=== PATIENT | female | born 1980 | race Caucasian/White ===

== ENCOUNTER 2017-02-23 17:21 | Emergency (ER) | payer MEDICAID ==
[2017-02-23 17:53] VITALS: BP 130/90
--- NOTE | 2017-02-23 18:12 | EDM.PDOC ---
ED HPI GENERAL MEDICAL PROBLEM - General Chief Complaint: Skin Complaint Stated Complaint: ABCESS Time Seen by Provider: 02/23/17 17:59 Source of Information: Reports: Patient History Limitations: Reports: No Limitations - History of Present Illness INITIAL COMMENTS - FREE TEXT/NARRATIVE: Patient is a 36 y/o female who presents to the E.D. complaining of pain to her rectum. States she has a history of crohns and perirectal abscess x 9. States the abscess are deep within and have required surgery to drain. She states the pain to the rectum is consistent with previous expisodes and has been worsening over the past few days. Has been seen by Dr. Maier with [facility] multiple times for surgical management. Patient states the pain is moderate intensity. Stools have been loose. No blood present. Denies fever/chills, n/v, abdominal pain, dysuria, or any additional complaints. Rectal Pain Score (Numeric/FACES): 5 - Related Data Allergies Allergy/AdvReac Type Severity Reaction Status Date / Time mesalamine [From Asacol] Allergy Headache Verified 04/15/16 10:58 Home Meds: Home Meds Certolizumab Pegol [Cimzia] 400 mg INJECT ASDIRECTED 02/23/17 [History] Doxycycline [Vibramycin] 100 mg PO Q12HR #20 cap 02/23/17 [Rx] L.acidoph,Paracasei, B.lactis [Probiotic] 2 cap PO DAILY 02/23/17 [History] buPROPion [Wellbutrin] 100 mg PO DAILY 02/23/17 [History] metroNIDAZOLE [Flagyl] 500 mg PO TID #30 tablet 02/23/17 [Rx] Past Medical History Gastrointestinal History: Reports: Inflammatory Bowel Disease, Other (See Below) Other Gastrointestinal History: crohns [facility] CODERS History: Reports: Musculoskeletal History: Reports: Osteoarthritis - Infectious Disease History Infectious Disease History: Reports: Chicken Pox - Past Surgical History GI Surgical History: Reports: Colonoscopy, Other (See Below) Other GI Surgeries/Procedures: osvaldo rectal abcess Social & Family History - Tobacco Use Smoking Status *Q: Never Smoker - Caffeine Use Caffeine Use: Reports: None - Recreational Drug Use Recreational Drug Use: No - Living Situation & Occupation Living situation: Reports: Occupation: Employed ED ROS GENERAL - Review of Systems Review Of Systems: See Below Constitutional: Denies: Fever, Chills, Decreased Appetite GI/Abdominal: Reports: Diarrhea. Denies: Abdominal Pain, Black Stool, Bloody Stool, Constipation, Nausea, Vomiting : Reports: No Symptoms Musculoskeletal: Reports: No Symptoms Skin: Reports: No Symptoms ED EXAM, SKIN/RASH Exam: See Below Exam Limited By: No Limitations General Appearance: Alert, WD/WN, No Apparent Distress Ears: Hearing Grossly Normal Nose: Normal Inspection Throat/Mouth: Normal Voice, No Airway Compromise Neck: Normal Inspection, Supple Respiratory/Chest: No Respiratory Distress, Lungs Clear, Normal Breath Sounds, No Accessory Muscle Use Cardiovascular: Normal Peripheral Pulses, Regular Rate, Rhythm, No Murmur Peripheral Pulses: 2+: Radial (L) GI/Abdominal: Normal Bowel Sounds, Soft, Non-Tender, No Organomegaly, No Distention (Female) Exam: Deferred Rectal (Female) Exam: Hemorrhoids, Other (Minimal tenderness to the along the outside of the rectum with palpation. No digital exam due to increasing pain. ) Neurological: Alert, Oriented Psychiatric: Normal Affect, Normal Mood Course - Vital Signs Last Recorded V/S: Last Vital Signs Temp 98.1 F 02/23/17 17:51 Pulse 81 02/23/17 17:51 Resp 20 02/23/17 17:51 BP 130/90 02/23/17 17:51 Pulse Ox 100 02/23/17 17:51 - Orders/Labs/Meds Labs: Laboratory Tests 02/23/17 02/23/17 02/23/17 Range/Units 18:30 18:30 18:30 WBC 9.29 (3.98-10.04) K/mm3 RBC 4.45 (3.98-5.22) M/mm3 Hgb 14.2 (11.2-15.7) gm/L Hct 42.3 (34.1-44.9) % MCV 95.1 H (79.4-94.8) fl MCH 31.9 (25.6-32.2) pg MCHC 33.6 (32.2-35.5) g/dl RDW Std Deviation 44.8 (36.4-46.3) fL Plt Count 238 (182-369) K/mm3 MPV 9.5 (9.4-12.3) fl Neut % (Auto) 57.7 (34.0-71.1) % Lymph % (Auto) 29.3 (19.3-51.7) % [place] % (Auto) 11.2 (4.7-12.5) % Eos % (Auto) 1.2 (0.7-5.8) Baso % (Auto) 0.3 (0.1-1.2) % Neut # (Auto) 5.36 (1.56-6.13) K/mm3 Lymph # (Auto) 2.72 (1.18-3.74) K/mm3 [place] # (Auto) 1.04 H (0.24-0.36) K/mm3 Eos # (Auto) 0.11 (0.04-0.36) K/mm3 Baso # (Auto) 0.03 (0.01-0.08) K/mm3 Sodium 139 (136-145) mEq/L Potassium 3.8 (3.5-5.1) mEq/L Chloride 102 (98-107) mEq/L Carbon Dioxide 29 (21-32) mEq/L Anion Gap 11.8 (5-15) BUN 14 (7-18) mg/dL Creatinine 1.0 (0.55-1.02) mg/dL Est Cr Clr Drug Dosing 82.48 mL/min Estimated GFR (MDRD) > 60 (>60) mL/min BUN/Creatinine Ratio 14.0 (14-18) Glucose 82 (74-106) mg/dL Calcium 9.2 (8.5-10.1) mg/dL Total Bilirubin 0.4 (0.2-1.0) mg/dL AST 17 (15-37) U/L ALT 21 (14-59) U/L Alkaline Phosphatase 41 L (46-116) U/L C-Reactive Protein 0.9 (<1.0) mg/dL Total Protein 7.5 (6.4-8.2) g/dl Albumin 3.6 (3.4-5.0) g/dl Globulin 3.9 gm/dL Albumin/Globulin Ratio 0.9 L (1-2) HCG, Qual Negative (NEGATIVE) Urine Color (Yellow) Urine Appearance (Clear) Urine pH (5.0-8.0) Ur Specific [place] (1.005-1.030) Urine Protein (Negative) Urine Glucose (UA) (Negative) Urine Ketones (Negative) Urine Occult Blood (Negative) Urine Nitrite (Negative) Urine Bilirubin (Negative) Urine Urobilinogen (0.2-1.0) Ur Leukocyte Esterase (Negative) Urine RBC (0-5) /hpf Urine WBC (0-5) /hpf Ur Epithelial Cells (0-5) /hpf Urine Bacteria (FEW) /hpf Urine Mucus (FEW) /hpf 02/23/17 Range/Units 19:20 WBC (3.98-10.04) K/mm3 RBC (3.98-5.22) M/mm3 Hgb (11.2-15.7) gm/L Hct (34.1-44.9) % MCV (79.4-94.8) fl MCH (25.6-32.2) pg MCHC (32.2-35.5) g/dl RDW Std Deviation (36.4-46.3) fL Plt Count (182-369) K/mm3 MPV (9.4-12.3) fl Neut % (Auto) (34.0-71.1) % Lymph % (Auto) (19.3-51.7) % [place] % (Auto) (4.7-12.5) % Eos % (Auto) (0.7-5.8) Baso % (Auto) (0.1-1.2) % Neut # (Auto) (1.56-6.13) K/mm3 Lymph # (Auto) (1.18-3.74) K/mm3 [place] # (Auto) (0.24-0.36) K/mm3 Eos # (Auto) (0.04-0.36) K/mm3 Baso # (Auto) (0.01-0.08) K/mm3 Sodium (136-145) mEq/L Potassium (3.5-5.1) mEq/L Chloride (98-107) mEq/L Carbon Dioxide (21-32) mEq/L Anion Gap (5-15) BUN (7-18) mg/dL Creatinine (0.55-1.02) mg/dL Est Cr Clr Drug Dosing mL/min Estimated GFR (MDRD) (>60) mL/min BUN/Creatinine Ratio (14-18) Glucose (74-106) mg/dL Calcium (8.5-10.1) mg/dL Total Bilirubin (0.2-1.0) mg/dL AST (15-37) U/L ALT (14-59) U/L Alkaline Phosphatase (46-116) U/L C-Reactive Protein (<1.0) mg/dL Total Protein (6.4-8.2) g/dl Albumin (3.4-5.0) g/dl Globulin gm/dL Albumin/Globulin Ratio (1-2) HCG, Qual (NEGATIVE) Urine Color Yellow (Yellow) Urine Appearance Clear (Clear) Urine pH 6.0 (5.0-8.0) Ur Specific [place] 1.015 (1.005-1.030) Urine Protein Negative (Negative) Urine Glucose (UA) Negative (Negative) Urine Ketones Negative (Negative) Urine Occult Blood Trace-lysed H (Negative) Urine Nitrite Negative (Negative) Urine Bilirubin Negative (Negative) Urine Urobilinogen 0.2 (0.2-1.0) Ur Leukocyte Esterase Negative (Negative) Urine RBC 0-5 (0-5) /hpf Urine WBC 0-5 (0-5) /hpf Ur Epithelial Cells 0-5 (0-5) /hpf Urine Bacteria Rare (FEW) /hpf Urine Mucus Not seen (FEW) /hpf Meds: Medications Discontinued Medications Generic Name Dose Route Start Last Admin Trade Name Freq PRN Reason Stop Dose Admin Diatrizoate Meglum/Diatrizoate Sod 90 ml 02/23/17 19:32 02/23/17 19:48 Gastrografin 37% PO 02/23/17 19:33 90 ml ONETIME ONE Administration Doxycycline Hyclate 200 mg 02/23/17 20:36 02/23/17 20:54 Vibramycin PO 02/23/17 20:37 200 mg ONETIME ONE Administration Hydromorphone HCl 0.5 mg 02/23/17 18:15 02/23/17 18:43 Dilaudid IVPUSH 02/23/17 18:16 0.5 mg ONETIME ONE Administration Iopamidol 125 ml 02/23/17 19:32 02/23/17 19:48 Isovue-300 (61%) IVPUSH 02/23/17 19:33 125 ml ONETIME ONE Administration Metronidazole 500 mg 02/23/17 20:36 02/23/17 20:54 Flagyl PO 02/23/17 20:37 500 mg ONETIME ONE Administration Ondansetron HCl 4 mg 02/23/17 18:14 02/23/17 18:41 Zofran IVPUSH 02/23/17 18:15 4 mg ONETIME ONE Administration Sodium Chloride 10 ml 02/23/17 18:14 02/23/17 18:40 Saline Flush FLUSH 10 ml ASDIRECTED PRN Administration Keep Vein Open Sodium Chloride 10 ml 02/23/17 19:32 02/23/17 19:48 Saline Flush FLUSH 02/23/17 19:33 10 ml ONETIME ONE Administration - Re-Assessments/Exams Free Text/Narrative Re-Assessment/Exam: Patient has a history of perirectal abscesses. She states pain similar to previous episodes. Will obtain basic labs including CBC, chem 14, CRP, hCG, and UA. CT the abdomen and pelvis with oral and IV contrast will be obtained. IV established with Dilaudid 0.5 mg IVP and Zofran 4 mg IVP. Labs reviewed: CBC and chem 14 are essentially normal. CRP is 0.9. HCG was negative. UA was negative for any concerning findings. 02/23/17 20:[address] Rocha requests patient be reevaluated by Dr. Maier with [facility]. Believes seeing Dr. Maier would offer the best outcome for the patient. Ordered doxycycline 200 mg by mouth and Flagyl 500 mg by mouth. We'll discharge patient home with instructions as documented. She will 02/23/17 20:51 Departure - Departure Time of Disposition: 20:52 Disposition: Home, Self-Care 01 Condition: Good Clinical Impression: Perirectal abscess Exacerbation of Crohn's disease Qualifiers: Digestive disease complication type: unspecified complication Qualified Code(s) : K50.919 - Crohn's disease, unspecified, with unspecified complications - Discharge Information Prescriptions: Doxycycline [Vibramycin] 100 mg PO Q12HR #20 cap metroNIDAZOLE [Flagyl] 500 mg PO TID #30 tablet Instructions: Crohn Disease Referrals: Nikolay Mckeon MD [Primary Care Provider] - Hung Maier MD [Ordering Only Provider] - Forms: ED Department Discharge Additional Instructions: Take the Flagyl and doxycycline as prescribed. For pain take tylenol 650mg every 6 hrs as needed. For severe pain take Jenkins one tab every 6 hours as needed. No driving this evening since receiving a sedative medication in the ED. No driving while taking the Jenkins. Do not take Tylenol and Jenkins together. Call and make an appointment tomorrow with Dr. Livier [facility] to be seen at his earliest appointment. Until evaluated by Dr. Maier perform sitz bath three times a day. Return to the E.D. for any new or worsening symptoms.
[2017-02-23] MEDS ORDERED: Sodium Chloride 0.9% 10 ML Syringe FLUSH PRN (18:14)
[2017-02-23] MEDS ORDERED: Ondansetron 4 MG/2 ML SDV IVPUSH ONE (18:14)
[2017-02-23] MEDS ORDERED: HYDROmorphone 0.5 MG/0.5 ML Syringe IVPUSH ONE (18:15)
[2017-02-23] MEDS ORDERED: Diatrizoate Meglumine/Diatrizoate Sodium 37% 120 ML Bottle PO ONE (19:32)
[2017-02-23] MEDS ORDERED: Iopamidol 612 MG/ML 150 ML Bottle IVPUSH ONE (19:32)
[2017-02-23] MEDS ORDERED: Sodium Chloride 0.9% 10 ML Syringe FLUSH ONE (19:32)
[2017-02-23] MEDS ORDERED: metroNIDAZOLE 500 MG Tab PO ONE (20:36)
[2017-02-23] MEDS ORDERED: Doxycycline 100 MG Cap PO ONE (20:36)
--- NOTE | 2017-02-24 08:36 | CT ---
CT abdomen and pelvis Technique: Multiple axial sections were obtained from the top of the liver inferiorly through the pubic symphysis. Intravenous and oral contrast was utilized. Delayed images were obtained through the bladder. Comparison: Previous CT abdomen and pelvis exam of 04/15/16. Findings: Perirectal abscess is identified. This occurs in similar location as to abscess seen on previous study and appears multiloculated. This occurs above the levator ani muscle. Largest abscess cavity is approximately 3.3 cm. Abscess appears mostly along the left lateral side of the rectum. There is rectal and sigmoid wall thickening with enhancement. No other areas of bowel wall thickening are seen. Visualized portions of the liver appear within normal limits. Spleen appears within normal limits. Adrenal glands show no nodule. Kidneys show symmetric contrast enhancement without hydronephrosis or mass. Pancreas is within normal limits. Aorta shows no aneurysmal dilatation. No retroperitoneal adenopathy or mesenteric abnormalities are seen. IUD is present within the uterus. Delayed images show contrast within the bladder. Bone window settings were reviewed which show incidental dural ectasia causing slight scalloping of the posterior S2 vertebral segment which is normal variant. Minimal degenerative change is noted within the spine. Impression: 1. Mild wall thickening and enhancement compatible with Crohn's disease involving a portion of sigmoid colon and rectum. Perirectal abscess is seen which is multiloculated and mostly on the left side and located above the levator ani muscle. 2. Other incidental findings. Diagnostic code #5 Agree with preliminary report issued by [facility] ([facility] preliminary report dictated on 02/23/17, 9:24 PM Central Time)
== END 2017-02-23 21:05 | disposition home or self-care (01) ==
LOC: JD.ED 17:21
DX: K61.1 Rectal abscess (principal); M19.90 Unspecified osteoarthritis, unspecified site; Z79.899 Other long term (current) drug therapy; Z88.8 Allergy status to other drugs, medicaments and biological substances
CPT/HCPCS: 36415; 74177; 80053; 81001; 84703; 85025; 86140; 96374; 96375; 99284; A9270; J1170; J2405; J7050; Q9963; Q9967

== ENCOUNTER 2019-11-09 00:26 | Emergency (ER) | payer SELFPAY ==
[2019-11-09 00:46] VITALS: BP 136/98; PULSE 84
[2019-11-09] MEDS ORDERED: Doxycycline 100 MG Cap PO ONE (00:50)
[2019-11-09] MEDS ORDERED: Hydrocortisone/Neomycin/Polymyxin B Otic Susp 10 ML Bottle EARLF ONE (00:51)
[2019-11-09] MEDS ORDERED: Acetaminophen/oxyCODONE 325-5 MG Tab PO ONE (00:52)
[2019-11-09] MEDS ORDERED: Ondansetron 4 MG Tab.DIS PO ONE (00:53)
--- NOTE | 2019-11-09 00:57 | EDM.PDOC ---
ED HPI GENERAL MEDICAL PROBLEM - General Chief Complaint: ENT Problem Stated Complaint: EAR PAIN Time Seen by Provider: 11/09/19 00:50 Source of Information: Reports: Patient History Limitations: Reports: No Limitations - History of Present Illness INITIAL COMMENTS - FREE TEXT/NARRATIVE: 39-year-old female presents to the ED with gradually worsening pain in her left ear over the last week. Tonight it so painful that she cannot hardly touch it or lay on that side to sleep. Pain is constant and throbbing. She has not noticed any discharge from the ear. No recent problems with ear problems. No allergies or bad colds. Is have bilateral temporomandibular joint dysfunction. Onset: Gradual Onset Date: 11/02/19 Duration: Day(s):, Getting Worse Location: Reports: Face (Left ear pain) Quality: Reports: Ache, Throbbing, Other Severity: Moderate (Painful to touch) Improves with: Reports: Rest, Other (Touching the ear) Worsens with: Reports: Other Context: Reports: Other. Denies: Activity, Exercise, Lifting, Sick Contact ( And to lay on that left side to sleep), Trauma Associated Symptoms: Reports: No Other Symptoms Treatments FRONT DESK ADMIN: Reports: Acetaminophen Left Ear Pain Score (Numeric/FACES): 8 - Related Data Allergies Allergy/AdvReac Type Severity Reaction Status Date / Time mesalamine [From Asacol] Allergy Headache Verified 11/09/19 00:45 Home Meds: Home Meds Doxycycline [Vibra-Tabs] 100 mg PO BID #20 tablet 11/09/19 [Rx] oxyCODONE HCl/Acetaminophen [Percocet 5-325 mg Tablet] 1 - 2 each PO Q4H PRN # 14 tablet 11/09/19 [Rx] Past Medical History Gastrointestinal History: Reports: Inflammatory Bowel Disease, Other (See Below) Other Gastrointestinal History: crohns [employer]END[employer] History: Reports: Musculoskeletal History: Reports: Osteoarthritis - Infectious Disease History Infectious Disease History: Reports: Chicken Pox - Past Surgical History GI Surgical History: Reports: Colonoscopy, Other (See Below) Other GI Surgeries/Procedures: osvaldo rectal abcess Social & Family History - Tobacco Use Smoking Status *Q: Never Smoker - Caffeine Use Caffeine Use: Reports: None - Living Situation & Occupation Living situation: Reports: Occupation: Employed ED ROS ENT - Review of Systems Review Of Systems: See Below Constitutional: Denies: Fever, Chills, Malaise, Weakness, Fatigue HEENT: Reports: Ear Pain, Glasses. Denies: Ear Discharge, Eye Discharge (Left ear pain gradually worsening over the last week.) Respiratory: Reports: No Symptoms Cardiovascular: Reports: No Symptoms Endocrine: Reports: No Symptoms GI/Abdominal: Reports: No Symptoms : Reports: No Symptoms Musculoskeletal: Reports: No Symptoms Skin: Reports: No Symptoms Neurological: Reports: No Symptoms Hematologic/Lymphatic: Reports: No Symptoms Immunologic: Reports: No Symptoms ED EXAM, ENT - Physical Exam Exam: See Below Exam Limited By: No Limitations General Appearance: Alert, WD/WN, Anxious, Moderate Distress, Other ( Temperature is 36.4 heart rate is 84 and sinus respiratory 16 BP 136/98 O2 sats 99% on room air) Ears: Auricular Tenderness (Getting on the ear left side causes pain. Pushing on the tragus makes the pain worse.), Canal Swelling (Side mild), Other (And has evidence of bilateral perforated eardrums and she can remember ever having tympanostomy tubes.). No: Hearing Loss, Canal Foreign Body, Canal Material, TM Bulging, TM Dullness, TM Erythema, TM Blood, TM Fluid Mouth/Throat: Normal Inspection, Normal Gums, Normal Lips, Normal Oropharynx, Normal Teeth Course - Vital Signs Last Recorded V/S: Last Vital Signs Temp 36.4 C 11/09/19 00:42 Pulse 84 11/09/19 00:42 Resp 16 11/09/19 00:42 BP 136/98 H 11/09/19 00:42 Pulse Ox 99 11/09/19 00:42 - Orders/Labs/Meds Meds: Medications Discontinued Medications Generic Name Dose Route Start Last Admin Trade Name Jarrodq PRN Reason Stop Dose Admin Doxycycline Hyclate 200 mg 11/09/19 00:50 Vibramycin PO 11/09/19 00:51 ONETIME ONE Neomycin/Polymyxin/Hydrocortisone 10 ml 11/09/19 00:51 Cortisporin Otic Susp EARLF 11/09/19 00:52 ONETIME ONE Ondansetron HCl 4 mg 11/09/19 00:53 Zofran Odt PO 11/09/19 00:54 ONETIME ONE Oxycodone/Acetaminophen 2 tab 11/09/19 00:52 Percocet 325-5 Mg PO 11/09/19 00:53 ONETIME ONE - Radiology Interpretation Free Text/Narrative:: 39-year-old female presents to the ED with gradually worsening left ear pain over the last week. Pain is bad enough tonight that she is unable to sleep and cannot lay on the left side. There is been no drainage from the left ear. 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 At any rate she has auricular tenderness on the left side with tragal tenderness as well. Clinically she has a left otitis externa. Treat with Cortisporin optic drops 2 drops to the left ear every 4 hours for the next 2 days then every 6 hours until the bottle is finished. Doxycycline 100 mg twice daily for the next 10 days. Percocet tab 5/325 mg 1 tablet ideally every 4-6 hours needed for pain relief for the next 2 to 3 days. 12 tablets provided. Given 2 Percocet tablets tonight from the ED with Zofran 4 mg sublingual. She will try and keep all the water out of her ear until it heals over the next month. Follow-up with personal care physician if not markedly improved in 4 days time Departure - Departure Time of Disposition: 00:53 Disposition: Home, Self-Care 01 Condition: Fair Clinical Impression: Otitis externa Qualifiers: Otitis externa type: noninfectious Noninfectious otitis externa type: other type Chronicity: acute Laterality: left Qualified Code(s): H60.592 - Other noninfective acute otitis externa, left ear - Discharge Information *PRESCRIPTION DRUG MONITORING PROGRAM REVIEWED*: Not Applicable *COPY OF PRESCRIPTION DRUG MONITORING REPORT IN PATIENT UMESH: Not Applicable Prescriptions: Doxycycline [Vibra-Tabs] 100 mg PO BID #20 tablet oxyCODONE HCl/Acetaminophen [Percocet 5-325 mg Tablet] 1 - 2 each PO Q4H PRN # 14 tablet PRN Reason: pain relief. Referrals: PCP,None [Primary Care Provider] - Forms: ED Department Discharge Additional Instructions: Evaluation in the emergency room tonight in regards to painful left ear that is been gradually worsening over the last several days but is much worse tonight. Unable to hardly touch or lay on that left ear. Examination shows that you have a infection in the ear canal . The floor the ear canal moves when you talk or open and close her jaw or touch your ear. Often occurs from water sitting in the bottom of the ear canal after showering and causing a crack in the skin with secondary infection occurring. You may shower but suggest using cotton eliot in your and pulling it out as soon as you get out of the shower trying to keep most water out of your for the next month. Treatment is pain medication Percocet tabs 5/325 mg 1 or 2 tablets every 4-6 hours as needed for pain relief until antibiotics become effective. Antibiotic is to be doxycycline 100 mg twice daily for the next 10 days. First 2 tabs were provided to the ED tonight. Antibiotic drops are to be Cortisporin drops 2 drops to the left ear every 4 hours for the first 2 days then every 6 hours until the bottle is gone. Expect marked improvement over the next 72 hours. Sepsis Event Note - Evaluation Sepsis Screening Result: No Definite Risk - Focused Exam Vital Signs: Vital Signs Temp Pulse Resp BP Pulse Ox 11/09/19 00:42 36.4 C 84 16 136/98 H 99 Date Exam was Performed: 11/09/19 Time Exam was Performed: 00:57
== END 2019-11-09 01:14 | disposition home or self-care (01) ==
LOC: JD.ED 00:26
DX: H60.592 Other noninfective acute otitis externa, left ear (principal); Z88.8 Allergy status to other drugs, medicaments and biological substances
CPT/HCPCS: 99282; A9270

== ENCOUNTER 2019-11-12 14:50 | Emergency (ER) | payer SELFPAY ==
[2019-11-12 15:00] VITALS: BP 150/92; PULSE 72
--- NOTE | 2019-11-12 15:18 | EDM.PDOC ---
ED HPI GENERAL MEDICAL PROBLEM - General Chief Complaint: ENT Problem Stated Complaint: LEFT EAR PAIN Time Seen by Provider: 11/12/19 14:51 Source of Information: Reports: Patient History Limitations: Reports: No Limitations - History of Present Illness INITIAL COMMENTS - FREE TEXT/NARRATIVE: Patient is a 39-year-old female who presents to the emergency department with left ear pain. She had been seen in this emergency department previously for similar symptoms and started on doxycycline and neomycin/polymyxin eardrops. She states that she took a few doses of the doxycycline and shortly thereafter developed significant itching. She stopped the medication and use Benadryl to relieve the symptoms. She continues to experience significant left ear pain however. Pain radiates down her neck and into her left head. Denies any fever or chills. Left Ear Pain Score (Numeric/FACES): 4 - Related Data Allergies Allergy/AdvReac Type Severity Reaction Status Date / Time mesalamine [From Asacol] Allergy Headache Verified 11/12/19 14:56 Home Meds: Home Meds oxyCODONE HCl/Acetaminophen [Percocet 5-325 mg Tablet] 1 - 2 each PO Q4H PRN # 14 tablet 11/09/19 [Rx] Amoxicillin/Potassium Clav [Augmentin 875-125 Tablet] 1 each PO BID 7 Days #14 tablet 11/12/19 [Rx] Past Medical History Gastrointestinal History: Reports: Inflammatory Bowel Disease, Other (See Below) Other Gastrointestinal History: crohns [employer] History: Reports: Musculoskeletal History: Reports: Osteoarthritis - Infectious Disease History Infectious Disease History: Reports: Chicken Pox - Past Surgical History GI Surgical History: Reports: Colonoscopy, Other (See Below) Other GI Surgeries/Procedures: osvaldo rectal abcess Social & Family History - Tobacco Use Smoking Status *Q: Never Smoker - Caffeine Use Caffeine Use: Reports: None - Recreational Drug Use Recreational Drug Use: No - Living Situation & Occupation Living situation: Reports: Occupation: Employed ED ROS ENT - Review of Systems Review Of Systems: Comprehensive ROS is negative, except as noted in HPI. ED EXAM, ENT - Physical Exam Exam: See Below Exam Limited By: No Limitations General Appearance: Alert, WD/WN, No Apparent Distress Ears: Canal Swelling (left), TM Bulging (left), TM Erythema (left). No: Canal Blood, Canal Discharge, TM Blood, TM Perforation, TM Vesicles Mouth/Throat: Normal Inspection, Normal Gums, Normal Lips, Normal Oropharynx, Normal Teeth Head: Atraumatic, Normocephalic Neck: Normal Inspection, Supple, Non-Tender, Full Range of Motion Respiratory/Chest: No Respiratory Distress, Lungs Clear, Normal Breath Sounds, No Accessory Muscle Use, Chest Non-Tender Cardiovascular: Normal Peripheral Pulses, Regular Rate, Rhythm, No Edema, No Gallop, No JVD, No Murmur, No Rub Neurological: Alert, Oriented, CN II-XII Intact, Normal Cognition, Normal Gait, Normal Reflexes, No Motor/Sensory Deficits Psychiatric: Normal Affect, Normal Mood Skin: Warm, Dry, Intact, Normal Color, No Rash Course - Vital Signs Last Recorded V/S: Last Vital Signs Temp 98.1 F 11/12/19 14:57 Pulse 72 11/12/19 14:57 Resp 12 11/12/19 14:57 BP 150/92 H 11/12/19 14:57 Pulse Ox 100 11/12/19 14:57 Departure - Departure Time of Disposition: 15:16 Disposition: Home, Self-Care 01 Condition: Good Clinical Impression: Otitis media Qualifiers: Otitis media type: suppurative Chronicity: acute Laterality: left Recurrence: not specified as recurrent Spontaneous tympanic membrane rupture: without spontaneous rupture Qualified Code(s): H66.002 - Acute suppurative otitis media without spontaneous rupture of ear drum, left ear - Discharge Information *PRESCRIPTION DRUG MONITORING PROGRAM REVIEWED*: No *COPY OF PRESCRIPTION DRUG MONITORING REPORT IN PATIENT UMESH: No Prescriptions: Amoxicillin/Potassium Clav [Augmentin 875-125 Tablet] 1 each PO BID 7 Days #14 tablet Instructions: Otitis Media, Adult, [id number] Referrals: Nikolay Mckeon MD [Primary Care Provider] - Forms: ED Department Discharge Additional Instructions: You were seen in the emergency department today for continued left ear pain. On exam, you have had an inner and outer ear infection. A prescription for Augmentin has been sent to [facility]. Take this medication as prescribed. Continue to use the eardrops that you were previously provided. You may use Tylenol or ibuprofen as needed for pain. If after that treatment regimen is completed you continue to experience pain, recommend that you follow- up in the clinic with your primary care provider. Return to the ER as needed. Sepsis Event Note - Evaluation Sepsis Screening Result: No Definite Risk - Focused Exam Vital Signs: Vital Signs Temp Pulse Resp BP Pulse Ox 11/12/19 14:57 98.1 F 72 12 150/92 H 100 Date Exam was Performed: 11/12/19 Time Exam was Performed: 21:42
== END 2019-11-12 15:28 | disposition home or self-care (01) ==
LOC: JD.ED 14:50
DX: H66.002 Acute suppurative otitis media without spontaneous rupture of ear drum, left ear (principal); M19.90 Unspecified osteoarthritis, unspecified site; Z88.8 Allergy status to other drugs, medicaments and biological substances; Z79.899 Other long term (current) drug therapy
CPT/HCPCS: 99282

== ENCOUNTER 2019-11-25 18:54 | Emergency (ER) | payer MEDICAID ==
[2019-11-25 19:11] VITALS: BP 132/85; PULSE 77
--- NOTE | 2019-11-25 19:50 | EDM.PDOC ---
ED HPI GENERAL MEDICAL PROBLEM - General Chief Complaint: Gastrointestinal Problem Stated Complaint: CROHNE ISSUES FLARE UP Time Seen by Provider: 11/25/19 19:21 Source of Information: Reports: Patient History Limitations: Reports: No Limitations - History of Present Illness INITIAL COMMENTS - FREE TEXT/NARRATIVE: Ms. 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 She did not volunteer that she has abdominal pain, but when asked, she stated that she has been having some right lower quadrant crampiness today, but no pain elsewhere. Here in the ED, the patient is found to be hemodynamically stable, afebrile, saturating 99% on room air. Medical records indicate that the patient was seen in this ED on 11/08/2019 for ear pain, and was found to have otitis media and otitis externa. She was prescribed doxycycline, Cortisporin otic drops, and Percocet, however, she then returned to the ED on 11/12/2019 because the doxycycline, she felt, caused a rash. She was prescribed Augmentin. She states that she was then seen at the [facility] on or about 10/21/2019, for continued ear pain, and was prescribed prednisone. The patient believes that the prednisone has induced her current Crohn flare. The patient states that her last Crohn flare was about 6 months ago, which she self-treated with CBD and edibles. She states that she gets a flare of her Crohn disease about twice a year. The last time that she received medical treatment for it was about 1.5 years ago, which included an infusion of Remicade , which she states worked "about 50%". Other than her earlier ear symptoms and today's gastrointestinal symptoms, the patient denies recent fever, chills, sore throat, nasal or sinus congestion, cough, dyspnea, chest pain, palpitations, nausea, vomiting, constipation, diarrhea, urinary symptoms, recent weight gain or weight loss, recent bloody bowel movements or black bowel movements, recent joint aches, headaches, or rashes. The patient's PCP is Dr. Nikolay Mckeon. Her Colorectal Surgeon is Dr. Hung Maier, at [facility]. - Related Data Allergies Allergy/AdvReac Type Severity Reaction Status Date / Time mesalamine [From Asacol] Allergy Severe Headache Verified 11/25/19 19:07 Home Meds: Home Meds oxyCODONE HCl/Acetaminophen [Percocet 5-325 mg Tablet] 1 - 2 each PO Q4H PRN # 14 tablet 11/09/19 [Rx] Amoxicillin/Potassium Clav [Augmentin 875-125 Tablet] 1 each PO BID 7 Days #14 tablet 11/12/19 [Rx] Past Medical History HEENT History: Reports: Other (See Below) (TMJ) Gastrointestinal History: Reports: Diverticulosis (diverticulitis), Inflammatory Bowel Disease (Crohn disease diagnosed 2009 or 2011), Other (See Below) (Several perirectal abscesses) CARDIOVASCULAR SURGICAL TECH History: Reports: Other (See Below) (IUD) Musculoskeletal History: Reports: Osteoarthritis Psychiatric History: Reports: Anxiety (untreated) - Infectious Disease History Infectious Disease History: Reports: Chicken Pox - Past Surgical History HEENT Surgical History: Reports: Oral Surgery (wisdom teeth extraction) GI Surgical History: Reports: Colonoscopy (x around 5), Other (See Below) ( Several fistulotomies) Musculoskeletal Surgical History: Reports: Other (See Below) (Right bunionectomy ) Social & Family History - Family History Family Medical History: Noncontributory - Tobacco Use Smoking Status *Q: Former Smoker Years of Tobacco use: 16 Packs/Tins Daily: 0.5 Month/Year Tobacco Last Used: Quit 2011 - Caffeine Use Caffeine Use: Reports: None - Alcohol Use Alcohol Use History: Yes Alcohol Use Frequency: Socially - Recreational Drug Use Recreational Drug Use: Yes Drug Use in Last 12 Months: Yes Recreational Drug Type: Reports: Marijuana/Hashish (CBD oil regularly. Last smoked/ate edible mid October 2019) - Living Situation & Occupation Living situation: Reports: , with Family (2 kids, mother, stepfather) Occupation: Unemployed ED ROS GENERAL - Review of Systems Review Of Systems: Comprehensive ROS is negative, except as noted in HPI. ED EXAM, GI/ABD - Physical Exam Exam: See Below Exam Limited By: No Limitations General Appearance: Alert, WD/WN, No Apparent Distress Eyes: Bilateral: Normal Appearance, EOMI Ears: Normal External Exam, Hearing Grossly Normal Nose: Normal Inspection Throat/Mouth: Normal Inspection, Normal Lips, Normal Voice, No Airway Compromise Head: Atraumatic, Normocephalic Neck: Normal Inspection, Full Range of Motion Respiratory/Chest: No Respiratory Distress, Lungs Clear, Normal Breath Sounds, No Accessory Muscle Use Cardiovascular: Normal Peripheral Pulses, Regular Rate, Rhythm, No Edema, No Gallop, No JVD, No Murmur, No Rub GI/Abdominal Exam: Normal Bowel Sounds, Soft, No Organomegaly, No Distention, No Abnormal Bruit, No Mass, Tender (Mild, right lower quadrant only. Nontender elsewhere.) (Female) Exam: Deferred Rectal (Female) Exam: Deferred Back Exam: Normal Inspection, Full Range of Motion. No: CVA Tenderness (L), CVA Tenderness (R) Extremities: Normal Inspection, Normal Range of Motion, No Pedal Edema, Normal Capillary Refill Neurological: Alert, Oriented, Normal Cognition, No Motor/Sensory Deficits Psychiatric: Normal Affect Skin Exam: Warm, Dry, Intact, Normal Color, No Rash Course - Vital Signs Last Recorded V/S: Last Vital Signs Temp 36.7 C 11/25/19 19:08 Pulse 77 11/25/19 19:08 Resp 16 11/25/19 19:08 BP 132/85 11/25/19 19:08 Pulse Ox 99 11/25/19 19:08 - Orders/Labs/Meds Orders: Active Orders 24 hr Category Date Time Status Abdomen Pelvis w Cont [CT] Stat Exams 11/25/19 19:48 Taken Labs: Laboratory Tests 11/25/19 11/25/19 11/25/19 Range/Units 19:25 19:25 20:00 WBC 8.08 (3.98-10.04) K/mm3 RBC 4.49 (3.98-5.22) M/mm3 Hgb 13.8 (11.2-15.7) gm/dl Hct 40.9 (34.1-44.9) % MCV 91.1 D (79.4-94.8) fl MCH 30.7 (25.6-32.2) pg MCHC 33.7 (32.2-35.5) g/dl RDW Std Deviation 41.4 (36.4-46.3) fL Plt Count 223 (182-369) K/mm3 MPV 10.1 (9.4-12.3) fl Neutrophils % (Manual) 90 H (40-60) % Band Neutrophils % 0 (0-10) % Lymphocytes % (Manual) 8 L (20-40) % Atypical Lymphs % 0 % Monocytes % (Manual) 2 (2-10) % Eosinophils % (Manual) 0 L (0.7-5.8) % Basophils % (Manual) 0 L (0.1-1.2) Platelet Estimate Adequate RBC Morph Comment Normal Sodium 141 (136-145) mEq/L Potassium 3.9 (3.5-5.1) mEq/L Chloride 106 (98-107) mEq/L Carbon Dioxide 24 (21-32) mEq/L Anion Gap 14.9 (5-15) BUN 13 (7-18) mg/dL Creatinine 1.1 H (0.55-1.02) mg/dL Est Cr Clr Drug Dosing 67.89 mL/min Estimated GFR (MDRD) 55 (>60) mL/min BUN/Creatinine Ratio 11.8 L (14-18) Glucose 157 H (74-106) mg/dL Calcium 9.2 (8.5-10.1) mg/dL Total Bilirubin 0.3 (0.2-1.0) mg/dL AST 10 L (15-37) U/L ALT 18 (14-59) U/L Alkaline Phosphatase 49 (46-116) U/L Total Protein 7.3 (6.4-8.2) g/dl Albumin 3.9 (3.4-5.0) g/dl Globulin 3.4 gm/dL Albumin/Globulin Ratio 1.2 (1-2) Urine Color Yellow (Yellow) Urine Appearance Clear (Clear) Urine pH 8.5 H (5.0-8.0) Ur Specific [place] 1.020 (1.005-1.030) Urine Protein Negative (Negative) Urine Glucose (UA) Negative (Negative) Urine Ketones Negative (Negative) Urine Occult Blood Trace-intact H (Negative) Urine Nitrite Negative (Negative) Urine Bilirubin Negative (Negative) Urine Urobilinogen 0.2 (0.2-1.0) Ur Leukocyte Esterase 2+ H (Negative) Urine RBC 5-10 H (0-5) /hpf Urine WBC 0-5 (0-5) /hpf Ur Squamous Epith Cells 0-5 (0-5) /hpf Urine Bacteria Few (FEW) /hpf Urine Mucus Not seen (FEW) /hpf Urine HCG, Qual (NEGATIVE) 11/25/19 Range/Units 20:00 WBC (3.98-10.04) K/mm3 RBC (3.98-5.22) M/mm3 Hgb (11.2-15.7) gm/dl Hct (34.1-44.9) % MCV (79.4-94.8) fl MCH (25.6-32.2) pg MCHC (32.2-35.5) g/dl RDW Std Deviation (36.4-46.3) fL Plt Count (182-369) K/mm3 MPV (9.4-12.3) fl Neutrophils % (Manual) (40-60) % Band Neutrophils % (0-10) % Lymphocytes % (Manual) (20-40) % Atypical Lymphs % % Monocytes % (Manual) (2-10) % Eosinophils % (Manual) (0.7-5.8) % Basophils % (Manual) (0.1-1.2) Platelet Estimate RBC Morph Comment Sodium (136-145) mEq/L Potassium (3.5-5.1) mEq/L Chloride (98-107) mEq/L Carbon Dioxide (21-32) mEq/L Anion Gap (5-15) BUN (7-18) mg/dL Creatinine (0.55-1.02) mg/dL Est Cr Clr Drug Dosing mL/min Estimated GFR (MDRD) (>60) mL/min BUN/Creatinine Ratio (14-18) Glucose (74-106) mg/dL Calcium (8.5-10.1) mg/dL Total Bilirubin (0.2-1.0) mg/dL AST (15-37) U/L ALT (14-59) U/L Alkaline Phosphatase (46-116) U/L Total Protein (6.4-8.2) g/dl Albumin (3.4-5.0) g/dl Globulin gm/dL Albumin/Globulin Ratio (1-2) Urine Color (Yellow) Urine Appearance (Clear) Urine pH (5.0-8.0) Ur Specific [place] (1.005-1.030) Urine Protein (Negative) Urine Glucose (UA) (Negative) Urine Ketones (Negative) Urine Occult Blood (Negative) Urine Nitrite (Negative) Urine Bilirubin (Negative) Urine Urobilinogen (0.2-1.0) Ur Leukocyte Esterase (Negative) Urine RBC (0-5) /hpf Urine WBC (0-5) /hpf Ur Squamous Epith Cells (0-5) /hpf Urine Bacteria (FEW) /hpf Urine Mucus (FEW) /hpf Urine HCG, Qual Negative (NEGATIVE) Meds: Medications Discontinued Medications Generic Name Dose Route Start Last Admin Trade Name Freq PRN Reason Stop Dose Admin Diatrizoate Meglum/Diatrizoate Sod 90 ml 11/25/19 20:50 11/25/19 21:00 Gastrografin 37% PO 11/25/19 20:51 90 ml ONETIME ONE Administration Sodium Chloride 1,000 mls @ 150 mls/hr 11/25/19 20:00 11/25/19 19:56 Normal Saline IV 150 mls/hr ASDIRECTED KHLOE Administration Iopamidol 100 ml 11/25/19 20:50 11/25/19 21:00 Isovue-300 (61%) IVPUSH 11/25/19 20:51 100 ml ONETIME ONE Administration Ondansetron HCl 4 mg 11/25/19 20:18 11/25/19 20:24 Zofran IVPUSH 11/25/19 20:19 4 mg ONETIME ONE Administration Sodium Chloride 10 ml 11/25/19 20:50 11/25/19 21:00 Saline Flush FLUSH 10 ml ONETIME PRN Administration KEEP VEIN OPEN - Re-Assessments/Exams Free Text/Narrative Re-Assessment/Exam: 11/25/19 19:50 As above, the patient is here for what she is calling a flare of her Crohn disease that she believes was induced by the prednisone that she was prescribed 4 days ago, however, her symptoms are not consistent with a Crohn flare and, of course, prednisone would not induce a flare of Crohn disease, rather, prednisone is a well-established treatment for inflammatory bowel disease. This leads me to query whether her diagnosis of Crohn disease is accurate. She reports having about 8 normal consistency and normal-colored bowel movements today, some of which she noticed some blood on the toilet paper when she wiped. No diarrhea. She reports some right lower quadrant crampy pain and she is tender to palpation of her right lower quadrant, but she denies pain elsewhere, and she is nontender elsewhere. No other symptoms, such as fever, nausea, or vomiting. Because the patient still has an appendix, I think it is important to rule out appendicitis, therefore I have ordered a work-up that includes blood work, a urinalysis, a urine test, and a CT scan of her abdomen and pelvis with oral and IV contrast. The CT will then also show me if there is any colitis. 11/25/19 20:18 Notified by Elsa LINDO that the patient developed nausea while drinking the oral contrast. I have ordered IV Zofran. 11/25/19 21:05 The patient's CBC is unremarkable. Her CMP is remarkable for a Cr slightly elevated at 1.1, but with a BUN normal at 13. Her blood glucose is mildly elevated at 157, with the remainder of her CMP being unremarkable. Her urinalysis is remarkable for 1+ blood with 5-10 RBCs, 2+ leukocyte esterase with 0-5 WBCs, nitrite negative with few bacteria, and 0-5 squamous epithelial cells. Her urine test is negative. 11/25/19 21:10 The patient states that her LMP was about 5 years ago. 11/25/19 21:46 CT of the abdomen and pelvis is read by Josefina as "No sign of acute intra- abdominal pathology. Appendix not seen. No evidence for appendicitis." 11/25/19 22:13 Test results discussed with the patient. As above, today's work-up is completely unremarkable, with the exception of her blood glucose being modestly elevated at 157, indicating that she most likely has prediabetes, with her current hyperglycemia due to the prednisone that she is on. I explained that there is no suggestion that her current gastrointestinal symptoms are due to a flare of Crohn disease. I suspect that the blood she is on the toilet paper is merely due to a hemorrhoid. I am not recommending any treatment for a Crohn flare, and the patient appears to understand. I am recommending that she go to the [facility] like to learn about a low glycemic index diet, and to follow-up with her PCP for further evaluation in that regard. Departure - Departure Time of Disposition: 22:14 Disposition: Home, Self-Care 01 Condition: Good Clinical Impression: External hemorrhoid, bleeding, Hyperglycemia - Discharge Information *PRESCRIPTION DRUG MONITORING PROGRAM REVIEWED*: Not Applicable *COPY OF PRESCRIPTION DRUG MONITORING REPORT IN PATIENT UMESH: Not Applicable Instructions: Prediabetes, Hemorrhoids, [id number] Referrals: Nikolay Mckeon MD [Primary Care Provider] - Hung Maier MD [Ordering Only Provider] - Forms: ED Department Discharge Additional Instructions: You were seen in the emergency room after experiencing about 8 bowel movements today, some associated with some blood on the toilet paper, along with lower right abdominal crampiness. Work-up in the ER included blood work, a urinalysis, a urine test, and a CT scan of your abdomen and pelvis with oral and IV contrast. Your entire work-up was unremarkable, with the exception that your blood sugar was found to be elevated at 157. This indicates that you have prediabetes, but could also have actual diabetes. The remainder of your work-up was unremarkable, with no suggestion that you are suffering from a flare of your Crohn disease. You do not have appendicitis. The blood seen was likely from a hemorrhoid. We recommend that you go to the [place] [employer] website, and click on the nutrition section, to learn about a diabetic diet, also known as a low glycemic index diet. We recommend that you follow-up with your PCP, Dr. Nikolay Mckeon, for further evaluation of your elevated blood glucose. Any other problems, please do not hesitate to return to the ER. Sepsis Event Note - Evaluation Sepsis Screening Result: No Definite Risk - Focused Exam Vital Signs: Vital Signs Temp Pulse Resp BP Pulse Ox 11/25/19 19:08 36.7 C 77 16 132/85 99 Date Exam was Performed: 11/25/19 Time Exam was Performed: 23:25 - My Orders Last 24 Hours: My Active Orders 11/25/19 19:48 Abdomen Pelvis w Cont [CT] Stat - Assessment/Plan Last 24 Hours: My Active Orders 11/25/19 19:48 Abdomen Pelvis w Cont [CT] Stat
[2019-11-25] MEDS ORDERED: Sodium Chloride 0.9% 1,000 ML IV SCH (20:00)
[2019-11-25] MEDS ORDERED: Ondansetron 4 MG/2 ML SDV IVPUSH ONE (20:18)
[2019-11-25] MEDS ORDERED: Diatrizoate Meglumine/Diatrizoate Sodium 37% 120 ML Bottle PO ONE (20:50)
[2019-11-25] MEDS ORDERED: Iopamidol 612 MG/ML 100 ML Bottle IVPUSH ONE (20:50)
[2019-11-25] MEDS ORDERED: Sodium Chloride 0.9% 10 ML Syringe FLUSH PRN (20:50)
--- NOTE | 2019-11-26 06:47 | CT ---
CT abdomen and pelvis Technique: Multiple axial sections were obtained from above the dome of the diaphragm inferiorly through the pubic symphysis. Intravenous and oral contrast was utilized. Delayed images were also obtained through the bladder. Comparison: Previous CT abdomen and pelvis exam of 02/23/17. Findings: Visualized lung bases show nothing acute. Liver contains no focal parenchymal abnormality. Spleen appears within normal limits. Adrenal glands show no nodule. Pancreas is within normal limits. Kidneys show symmetric contrast enhancement without hydronephrosis or mass. Gallbladder is collapsed but shows no calcified gallstones. Aorta shows no aneurysm. No retroperitoneal adenopathy or mesenteric abnormalities are seen. No pelvic mass or adenopathy is noted. IUD is present within the endometrial cavity of the uterus. Appendix not visualized. No free fluid or inflammatory change is appreciated. Delayed images shows contrast within the bladder. Bone window settings were reviewed which shows no acute osseous finding. Impression: 1. Nothing acute is appreciated on CT study of the abdomen and pelvis. Diagnostic code #2 This report was dictated in MDT I agree with preliminary report from jey, finalized on 11/25/19, 10:27 PM Central Daylight Time
== END 2019-11-25 22:34 | disposition home or self-care (01) ==
LOC: JD.ED 18:54
DX: K64.4 Residual hemorrhoidal skin tags (principal); R73.9 Hyperglycemia, unspecified; Z88.8 Allergy status to other drugs, medicaments and biological substances; Z87.891 Personal history of nicotine dependence
CPT/HCPCS: 36415; 74177; 80053; 81001; 81025; 85007; 85027; 96361; 96374; 99284; J2405; J7030; Q9963; Q9967